=== PATIENT | male | born 1995 | race American Indian/Alaskan Native ===

== ENCOUNTER 2017-05-26 15:10 | Emergency (ER) | payer SELFPAY ==
[2017-05-26 15:21] VITALS: BP 141/73
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
[2017-05-26] MEDS ORDERED: TORADOL IM ONE (16:31)
[2017-05-26] MEDS ORDERED: FUL-GLO OP ONE (19:22)
[2017-05-26] MEDS ORDERED: BOOSTRIX IM ONE (19:22)
[2017-05-26] MEDS ORDERED: TETRACAINE 0.5% OU ONE (19:24)
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
== END 2017-05-26 20:30 | disposition home or self-care (01) ==
LOC: ED 15:10
DX: S01.112A Laceration without foreign body of left eyelid and periocular area, initial encounter (principal); H11.32 Conjunctival hemorrhage, left eye; F17.200 Nicotine dependence, unspecified, uncomplicated; Z88.0 Allergy status to penicillin; Y08.89XA Assault by other specified means, initial encounter; Y93.9 Activity, unspecified; Y99.9 Unspecified external cause status; Y92.89 Other specified places as the place of occurrence of the external cause
CPT/HCPCS: 12011; 70450; 70480; 90471; 90715; 96372; 99283; J1885